=== PATIENT | male | born 1975 | race Caucasian/White ===

== ENCOUNTER 2020-02-16 02:35 | Emergency (ER) | payer MEDICARE ==
[~2020-02-16] VITALS: Ht 190.5 cm; Wt 125.0 kg
[2020-02-16 02:39] VITALS: TEMP 98.3
[2020-02-16 03:09] LABS: HEMATOCRIT 41.4 % (42.0-52.0); HEMOGLOBIN 13.5 g/dl (13.5-18.0); MEAN CELL VOLUME 101 fl (80.0-100.0); MEAN CORPUSCULAR HEMOGLOBIN 33 pg (27.0-31.0); MEAN CORPUSCULAR HGB CONC 33 g/dl (33.0-37.0); MEAN PLATELET VOLUME 10.1 fl (7.4-10.4); PLATELET COUNT 225 K/mm3 (130-400); RED BLOOD COUNT 4.11 M/mm3 (4.20-5.60); REDCELL DISTRIBUTION WIDTH-CV 14.2 % (11.5-14.5)
[2020-02-16 03:18] LABS: ALBUMIN 4.1 gm/dL (3.5-5.0); BILIRUBIN,TOTAL 0.5 mg/dL (0.0-1.0); CALCIUM 9.1 mg/dL (8.4-10.2); CREATININE, serum 2.32 (0.66-1.25); POTASSIUM 4.7 mmol/L (3.4-5.0); TOTAL PROTEIN 7.6 gm/dL (6.4-8.2)
[2020-02-16 04:25] LABS: BAND 4 % (0-10); EOSINOPHIL 1 % (0-4); LYMPHOCYTE 17 % (20.0-51.0); METAMYELOCYTE 1 % (0-0); NEUTROPHILS 62 % (42.0-75.2); PLATELET ESTIMATE NORMAL (NORMAL); TEAR DROP CELLS 1+
[2020-02-16 05:02] VITALS: BP 130/82; PULSE 80
== END 2020-02-16 05:08 | disposition home or self-care (01) ==
LOC: COL.ER 02:35
PROVIDERS: Emergency Medicine
DX: K85.90 Acute pancreatitis without necrosis or infection, unspecified (principal); I13.0 Hypertensive heart and chronic kidney disease with heart failure and stage 1 through stage 4 chronic kidney disease, or unspecified chronic kidney disease; Z85.07 Personal history of malignant neoplasm of pancreas; Z90.411 Acquired partial absence of pancreas; Z90.81 Acquired absence of spleen; Z90.49 Acquired absence of other specified parts of digestive tract; Z94.1 Heart transplant status
CPT/HCPCS: J1170; J2405; J3010; J7030

== ENCOUNTER → 2020-03-05 | Outpatient (CLI) | payer MEDICARE ==
[2020-03-05 13:11] LABS: INR 1.4 (0.8-3.0); PROTHROMBIN TIME 16.1 SECONDS (9.7-12.8)
== END ==
LOC: COL.LAB 11:54
DX: I82.5Y9 Chronic embolism and thrombosis of unspecified deep veins of unspecified proximal lower extremity (principal)

== ENCOUNTER → 2020-03-09 | Outpatient (CLI) | payer MEDICARE ==
[2020-03-09 09:14] LABS: INR 1.8 (0.8-3.0); PROTHROMBIN TIME 20.5 SECONDS (9.7-12.8)
== END ==
LOC: COL.LAB 08:39
DX: I82.5Y9 Chronic embolism and thrombosis of unspecified deep veins of unspecified proximal lower extremity (principal)

== ENCOUNTER → 2020-03-17 | Outpatient (CLI) | payer MEDICARE ==
[2020-03-17 16:37] LABS: PROTHROMBIN TIME 22.5 SECONDS (9.7-12.8)
== END ==
LOC: COL.LAB 16:00
DX: I82.5Y9 Chronic embolism and thrombosis of unspecified deep veins of unspecified proximal lower extremity (principal)

== ENCOUNTER → 2020-04-27 | Outpatient (CLI) | payer MEDICARE ==
[2020-04-27 11:47] LABS: BASO % 0.4 % (0.0-2.0); EOS # 0.1 (0.0-0.7); EOS % 1.8 % (0-4.0); GRAN # 4.8 (1.4-6.5); GRAN % 60.6 % (42.2-75.2); HEMATOCRIT 45.6 % (42.0-52.0); HEMOGLOBIN 15.2 g/dl (13.5-18.0); LYMPH # 1.6 (1.2-3.4); LYMPH % 20.6 % (20.0-51.0); MEAN CELL VOLUME 99 fl (80.0-100.0); MEAN CORPUSCULAR HEMOGLOBIN 33 pg (27.0-31.0); MEAN CORPUSCULAR HGB CONC 33 g/dl (33.0-37.0); MEAN PLATELET VOLUME 10.2 fl (7.4-10.4); MONO # 1.3 (0.1-0.6); MONO % 16.2 % (1.7-9.3); PLATELET COUNT 265 K/mm3 (130-400); RED BLOOD COUNT 4.63 M/mm3 (4.20-5.60); REDCELL DISTRIBUTION WIDTH-CV 13.1 % (11.5-14.5)
== END ==
LOC: COL.LAB 10:27
DX: Z48.21 Encounter for aftercare following heart transplant (principal)

== ENCOUNTER → 2020-04-27 | Outpatient (CLI) | payer MEDICARE ==
[2020-04-27 11:42] LABS: INR 2.2 (0.8-3.0); PROTHROMBIN TIME 24.5 SECONDS (9.7-12.8)
== END ==
LOC: COL.LAB 09:23
DX: I82.5Y9 Chronic embolism and thrombosis of unspecified deep veins of unspecified proximal lower extremity (principal)

== ENCOUNTER → 2020-04-27 | Outpatient (CLI) | payer MEDICARE ==
[2020-04-27 11:51] LABS: ALBUMIN 4.4 gm/dL (3.5-5.0); BILIRUBIN UNCONJUGATED 0.6 mg/dL (0.0-1.1); BILIRUBIN,TOTAL 0.6 mg/dL (0.0-1.0); CREATININE, serum 1.8 (0.66-1.25); POTASSIUM 4.2 mmol/L (3.4-5.0); TOTAL PROTEIN 8.2 gm/dL (6.4-8.2)
[2020-04-27 12:15] LABS: CALCIUM 9.5 mg/dL (8.4-10.2)
== END ==
LOC: COL.LAB 10:20
PROVIDERS: Internal Medicine
DX: Z48.21 Encounter for aftercare following heart transplant (principal); Z94.1 Heart transplant status

== ENCOUNTER → 2020-06-19 | Outpatient (CLI) | payer MEDICARE ==
[2020-06-19 15:49] LABS: INR 3.3 (0.8-3.0); PROTHROMBIN TIME 36.9 SECONDS (9.7-12.8)
== END ==
LOC: COL.LAB 14:50
DX: I82.5Y9 Chronic embolism and thrombosis of unspecified deep veins of unspecified proximal lower extremity (principal)

== ENCOUNTER → 2020-07-28 | Outpatient (CLI) | payer MEDICARE ==
[2020-07-28 11:24] LABS: BASO % 0.4 % (0.0-2.0); EOS # 0.1 (0.0-0.7); EOS % 1.9 % (0-4.0); GRAN # 3.7 (1.4-6.5); GRAN % 53.5 % (42.2-75.2); HEMATOCRIT 44.3 % (42.0-52.0); HEMOGLOBIN 14.7 g/dl (13.5-18.0); LYMPH # 1.9 (1.2-3.4); LYMPH % 27.4 % (20.0-51.0); MEAN CELL VOLUME 98 fl (80.0-100.0); MEAN CORPUSCULAR HEMOGLOBIN 33 pg (27.0-31.0); MEAN CORPUSCULAR HGB CONC 33 g/dl (33.0-37.0); MEAN PLATELET VOLUME 10.1 fl (7.4-10.4); MONO # 1.1 (0.1-0.6); MONO % 16.5 % (1.7-9.3); PLATELET COUNT 228 K/mm3 (130-400); RED BLOOD COUNT 4.53 M/mm3 (4.20-5.60); REDCELL DISTRIBUTION WIDTH-CV 14.1 % (11.5-14.5)
[2020-07-28 11:30] LABS: ALBUMIN 4.6 gm/dL (3.5-5.0); BILIRUBIN,TOTAL 0.6 mg/dL (0.0-1.0); CALCIUM 9.7 mg/dL (8.4-10.2); CREATININE, serum 2.22 (0.66-1.25); POTASSIUM 4.7 mmol/L (3.4-5.0)
== END ==
LOC: COL.LAB 09:55
PROVIDERS: Internal Medicine Cardiovascular Disease
DX: Z48.21 Encounter for aftercare following heart transplant (principal); N18.30 Chronic kidney disease, stage 3 unspecified; Z79.899 Other long term (current) drug therapy; D84.9 Immunodeficiency, unspecified

== ENCOUNTER → 2020-07-28 | Outpatient (CLI) | payer MEDICARE | LOC: COL.LAB 09:27 | DX: Z01.89 Encounter for other specified special examinations (principal) ==

== ENCOUNTER → 2020-07-28 | Outpatient (CLI) | payer MEDICARE ==
[2020-07-28 11:23] LABS: INR 2.9 (0.8-3.0); PROTHROMBIN TIME 32.4 SECONDS (9.7-12.8)
== END ==
LOC: COL.LAB 09:44
PROVIDERS: Internal Medicine Cardiovascular Disease
DX: Z48.21 Encounter for aftercare following heart transplant (principal); N18.30 Chronic kidney disease, stage 3 unspecified; D84.9 Immunodeficiency, unspecified; Z79.899 Other long term (current) drug therapy; I82.5Y9 Chronic embolism and thrombosis of unspecified deep veins of unspecified proximal lower extremity

== ENCOUNTER → 2020-08-24 | Outpatient (CLI) | payer MEDICARE | LOC: COL.LAB 08:43 | DX: Z48.21 Encounter for aftercare following heart transplant (principal) ==

== ENCOUNTER → 2020-08-24 | Outpatient (CLI) | payer MEDICARE ==
[2020-08-24 09:56] LABS: INR 4.5 (0.8-3.0)
== END ==
LOC: COL.LAB 09:08
PROVIDERS: Internal Medicine Cardiovascular Disease
DX: I82.5Y9 Chronic embolism and thrombosis of unspecified deep veins of unspecified proximal lower extremity (principal)

== ENCOUNTER → 2020-08-28 | Outpatient (CLI) | payer MEDICARE ==
[2020-08-28 14:09] LABS: INR 2.3 (0.8-3.0); PROTHROMBIN TIME 25.7 SECONDS (9.7-12.8)
== END ==
LOC: COL.LAB 13:01
DX: Z86.73 Personal history of transient ischemic attack (TIA), and cerebral infarction without residual deficits (principal)

== ENCOUNTER → 2020-10-02 | Outpatient (CLI) | payer MEDICARE ==
[2020-10-02 15:49] LABS: INR 3.5 (0.8-3.0); PROTHROMBIN TIME 39.4 SECONDS (9.7-12.8)
== END ==
LOC: COL.LAB 15:06
PROVIDERS: Internal Medicine Cardiovascular Disease
DX: I82.5Y9 Chronic embolism and thrombosis of unspecified deep veins of unspecified proximal lower extremity (principal)

== ENCOUNTER → 2020-10-12 | Outpatient (CLI) | payer MEDICARE ==
[2020-10-12 15:05] LABS: INR 2.8 (0.8-3.0); PROTHROMBIN TIME 31.1 SECONDS (9.7-12.8)
== END ==
LOC: COL.LAB 14:23
DX: Z86.73 Personal history of transient ischemic attack (TIA), and cerebral infarction without residual deficits (principal)

== ENCOUNTER → 2020-12-15 | Outpatient (CLI) | payer MEDICARE ==
[2020-12-15 12:17] LABS: BILIRUBIN,TOTAL 0.7 mg/dL (0.0-1.0); CALCIUM 9.3 mg/dL (8.4-10.2); CHOLESTEROL RISK RATIO 1.8; CREATININE, serum 1.84 (0.66-1.25); INR 2.3 (0.8-3.0); MAGNESIUM 1.8 mg/dL (1.6-2.3); POTASSIUM 4.6 mmol/L (3.4-5.0); PROTHROMBIN TIME 25.4 SECONDS (9.7-12.8); TOTAL PROTEIN 7.3 gm/dL (6.4-8.2)
[2020-12-15 12:19] LABS: BASO % 0.6 % (0.0-2.0); EOS # 0.2 (0.0-0.7); EOS % 3.1 % (0-4.0); GRAN # 2.5 (1.4-6.5); HEMATOCRIT 43.3 % (42.0-52.0); HEMOGLOBIN 14.2 g/dl (13.5-18.0); LYMPH # 1.7 (1.2-3.4); LYMPH % 32.6 % (20.0-51.0); MEAN CELL VOLUME 99 fl (80.0-100.0); MEAN CORPUSCULAR HEMOGLOBIN 33 pg (27.0-31.0); MEAN CORPUSCULAR HGB CONC 33 g/dl (33.0-37.0); MEAN PLATELET VOLUME 10.3 fl (7.4-10.4); MONO # 0.9 (0.1-0.6); MONO % 16.3 % (1.7-9.3); PLATELET COUNT 238 K/mm3 (130-400); RED BLOOD COUNT 4.36 M/mm3 (4.20-5.60); REDCELL DISTRIBUTION WIDTH-CV 13.3 % (11.5-14.5)
[2020-12-16 15:11] LABS: CYCLOSPORINE-BLOOD 42 ng/mL (100-400)
[2020-12-18 12:38] LABS: CYTOMEGALOVIRUS DNA PCR Not Detected (()); CYTOMEGALOVIRUS DNA PCR LOG Not Detected (())
== END ==
LOC: COL.LAB 11:07
PROVIDERS: Internal Medicine Cardiovascular Disease
DX: Z48.21 Encounter for aftercare following heart transplant (principal); E78.2 Mixed hyperlipidemia; Z79.01 Long term (current) use of anticoagulants

== ENCOUNTER → 2021-02-23 | Outpatient (CLI) | payer MEDICARE ==
[2021-02-23 11:37] LABS: BASO % 0.5 % (0.0-2.0); EOS # 0.1 (0.0-0.7); EOS % 2.3 % (0-4.0); GRAN # 3.2 (1.4-6.5); GRAN % 52.3 % (42.2-75.2); HEMATOCRIT 42.9 % (42.0-52.0); HEMOGLOBIN 13.6 g/dl (13.5-18.0); LYMPH # 1.8 (1.2-3.4); LYMPH % 28.9 % (20.0-51.0); MEAN CELL VOLUME 101 fl (80.0-100.0); MEAN CORPUSCULAR HEMOGLOBIN 32 pg (27.0-31.0); MEAN CORPUSCULAR HGB CONC 32 g/dl (33.0-37.0); MEAN PLATELET VOLUME 10.3 fl (7.4-10.4); MONO % 15.8 % (1.7-9.3); PLATELET COUNT 231 K/mm3 (130-400); RED BLOOD COUNT 4.23 M/mm3 (4.20-5.60); REDCELL DISTRIBUTION WIDTH-CV 14.1 % (11.5-14.5)
[2021-02-23 11:48] LABS: BILIRUBIN,TOTAL 0.6 mg/dL (0.0-1.0); CREATININE, serum 1.86 (0.66-1.25); MAGNESIUM 1.9 mg/dL (1.6-2.3); POTASSIUM 4.5 mmol/L (3.4-5.0); TOTAL PROTEIN 7.2 gm/dL (6.4-8.2)
[2021-02-23 11:50] LABS: INR 2.5 (0.8-3.0); PROTHROMBIN TIME 28.1 SECONDS (9.7-12.8)
== END ==
LOC: COL.LAB 02-22 13:46
DX: Z48.21 Encounter for aftercare following heart transplant (principal)

== ENCOUNTER → 2021-04-21 | Outpatient (CLI) | payer MEDICARE | LOC: COL.LAB 10:42 | DX: Z48.21 Encounter for aftercare following heart transplant (principal); Z79.899 Other long term (current) drug therapy ==

== ENCOUNTER 2021-08-04 12:28 | Emergency (ER) | payer MEDICARE ==
[~2021-08-04] VITALS: Ht 190.5 cm; Wt 125.0 kg
[2021-08-04 13:24] VITALS: TEMP 98.7
[2021-08-04 16:02] LABS: HEMATOCRIT 42.2 % (42.0-52.0); HEMOGLOBIN 14.1 g/dl (13.5-18.0); MEAN CELL VOLUME 99 fl (80.0-100.0); MEAN CORPUSCULAR HEMOGLOBIN 33 pg (27-31); MEAN CORPUSCULAR HGB CONC 33 g/dl (33.0-37.0); MEAN PLATELET VOLUME 9.6 fl (7.4-10.4); PLATELET COUNT 230 K/mm3 (130-400); RED BLOOD COUNT 4.27 M/mm3 (4.20-5.60); REDCELL DISTRIBUTION WIDTH-CV 14.1 % (11.5-14.5)
[2021-08-04 16:15] LABS: ALBUMIN 3.2 gm/dL (3.5-5.0); BILIRUBIN,TOTAL 0.4 mg/dL (0.2-1.2); CALCIUM 8.7 mg/dL (8.4-10.2); CREATININE, serum 1.83 mg/dL (0.72-1.25); POTASSIUM 5.3 mmol/L (3.5-4.5); TOTAL PROTEIN 7.2 gm/dL (6.2-8.1)
[2021-08-04 16:49] LABS: BAND 5 % (0-10); LYMPHOCYTE 18 % (20.0-51.0); NEUTROPHILS 57 % (42.0-75.2); PLATELET ESTIMATE NORMAL (NORMAL)
[2021-08-04] MEDS ORDERED: NORCO 325 MG-51 TAB PO (19:14)
[2021-08-04 19:55] VITALS: BP 136/101; PULSE 109
== END 2021-08-04 19:55 | disposition home or self-care (01) ==
LOC: COL.ER 12:28
PROVIDERS: Personal Emergency Response Attendant
DX: J40 Bronchitis, not specified as acute or chronic (principal); K43.9 Ventral hernia without obstruction or gangrene; I12.9 Hypertensive chronic kidney disease with stage 1 through stage 4 chronic kidney disease, or unspecified chronic kidney disease; N18.9 Chronic kidney disease, unspecified; Z90.49 Acquired absence of other specified parts of digestive tract; Z85.07 Personal history of malignant neoplasm of pancreas; Z94.1 Heart transplant status
CPT/HCPCS: J0456; J0696; J2270; J2405; J7030; J7050

== ENCOUNTER → 2021-11-03 | Outpatient (CLI) | payer MEDICARE ==
[~2021-11-03] MED LIST: NORCO 325 MG-51 TAB PO
[2021-11-03 10:49] LABS: CALCIUM 9.2 mg/dL (8.4-10.2); CREATININE, serum 2.03 mg/dL (0.72-1.25); POTASSIUM 4.7 mmol/L (3.5-4.5)
== END ==
LOC: COL.LAB 10:13
DX: Z48.21 Encounter for aftercare following heart transplant (principal)

== ENCOUNTER → 2022-01-20 | Outpatient (CLI) | payer MEDICARE ==
[2022-01-20 10:45] LABS: BASO % 0.5 % (0.0-2.0); EOS # 0.1 K/mm3 (0.0-0.7); EOS % 2.1 % (0.0-4.0); GRAN # 3.2 K/mm3 (1.4-6.5); GRAN % 55.1 % (42.2-75.2); HEMATOCRIT 44.1 % (42.0-52.0); HEMOGLOBIN 14.2 g/dl (13.5-18.0); LYMPH # 1.7 K/mm3 (1.2-3.4); LYMPH % 29.6 % (20.0-51.0); MEAN CELL VOLUME 100 fl (80.0-100.0); MEAN CORPUSCULAR HEMOGLOBIN 32 pg (27-31); MEAN CORPUSCULAR HGB CONC 32 g/dl (33.0-37.0); MEAN PLATELET VOLUME 10.1 fl (7.4-10.4); MONO # 0.7 K/mm3 (0.1-0.6); MONO % 12.5 % (1.7-9.3); PLATELET COUNT 231 K/mm3 (130-400); REDCELL DISTRIBUTION WIDTH-CV 13.6 % (11.5-14.5)
[2022-01-20 11:03] LABS: ALBUMIN 3.6 gm/dL (3.5-5.0); BILIRUBIN,TOTAL 0.7 mg/dL (0.2-1.2); CALCIUM 9.3 mg/dL (8.4-10.2); CREATININE, serum 1.93 mg/dL (0.72-1.25); POTASSIUM 4.6 mmol/L (3.5-4.5); TOTAL PROTEIN 7.5 gm/dL (6.2-8.1)
== END ==
LOC: COL.LAB 10:05
DX: D84.9 Immunodeficiency, unspecified (principal); Z48.21 Encounter for aftercare following heart transplant; Z79.899 Other long term (current) drug therapy

== ENCOUNTER → 2022-03-08 | Outpatient (CLI) | payer MEDICARE ==
[2022-03-08 10:46] LABS: CREATININE, serum 1.93 mg/dL (0.72-1.25)
== END ==
LOC: COL.LAB 09:33
DX: Z48.21 Encounter for aftercare following heart transplant (principal)

== ENCOUNTER → 2022-10-28 | Outpatient (CLI) | payer MEDICARE ==
[2022-10-28 09:40] LABS: BASO % 0.4 % (0.0-2.0); EOS # 0.2 K/mm3 (0.0-0.7); EOS % 2.2 % (0.0-4.0); GRAN # 4.2 K/mm3 (1.4-6.5); GRAN % 58.4 % (42.2-75.2); HEMATOCRIT 45.6 % (42.0-52.0); HEMOGLOBIN 15.1 g/dl (13.5-18.0); LYMPH # 1.8 K/mm3 (1.2-3.4); LYMPH % 25.4 % (20.0-51.0); MEAN CELL VOLUME 98 fl (80.0-100.0); MEAN CORPUSCULAR HEMOGLOBIN 33 pg (27-31); MEAN CORPUSCULAR HGB CONC 33 g/dl (33.0-37.0); MEAN PLATELET VOLUME 9.7 fl (7.4-10.4); MONO % 13.3 % (1.7-9.3); PLATELET COUNT 259 K/mm3 (130-400); RED BLOOD COUNT 4.65 M/mm3 (4.20-5.60); REDCELL DISTRIBUTION WIDTH-CV 13.3 % (11.5-14.5)
== END ==
LOC: COL.LAB 08:59
DX: Z48.21 Encounter for aftercare following heart transplant (principal)

== ENCOUNTER → 2023-01-05 | Outpatient (CLI) | payer MEDICARE ==
[~2023-01-05] MED LIST changes: +BENTYL 10MG10 MG/CAP PO; +CELLCEPT 5500 MG/TAB PO; +CRESTOR20 MG PO; +ELIQUIS 5MG PO; +OSCAL 500 TAB500 MG PO; +PEPCID 20MG TAB20 MG PO; +PREDNISONE 5MG5 MG PO; +PRINIVIL5 MG PO; +PROGRAF 0.5MG0.5 MG PO; +PROGRAF 1MG1 MG PO; +PROZAC40 MG PO; +VITAMIN C500 MG PO; +VITAMIN D3400 I1 PO; +VITAMIN E 400 U4001 PO; +ZOFRAN ODT4 MG PO
[2023-01-05 10:51] LABS: BASO % 0.6 % (0.0-2.0); EOS # 0.1 K/mm3 (0.0-0.7); EOS % 1.8 % (0.0-4.0); GRAN # 4.2 K/mm3 (1.4-6.5); GRAN % 63.3 % (42.2-75.2); HEMATOCRIT 45.3 % (42.0-52.0); LYMPH # 1.5 K/mm3 (1.2-3.4); LYMPH % 22.4 % (20.0-51.0); MEAN CELL VOLUME 96 fl (80.0-100.0); MEAN CORPUSCULAR HEMOGLOBIN 32 pg (27-31); MEAN CORPUSCULAR HGB CONC 33 g/dl (33.0-37.0); MEAN PLATELET VOLUME 9.5 fl (7.4-10.4); MONO # 0.8 K/mm3 (0.1-0.6); MONO % 11.7 % (1.7-9.3); PLATELET COUNT 265 K/mm3 (130-400); REDCELL DISTRIBUTION WIDTH-CV 13.5 % (11.5-14.5)
[2023-01-05 11:10] LABS: ALBUMIN 3.7 gm/dL (3.5-5.0); BILIRUBIN,TOTAL 0.7 mg/dL (0.2-1.2); CALCIUM 9.5 mg/dL (8.4-10.2); CREATININE, serum 2.01 mg/dL (0.72-1.25); MAGNESIUM 1.9 mg/dL (1.6-2.6); POTASSIUM 4.6 mmol/L (3.5-4.5); TOTAL PROTEIN 7.4 gm/dL (6.2-8.1)
== END ==
LOC: COL.LAB 10:17
PROVIDERS: Internal Medicine Cardiovascular Disease
DX: Z48.21 Encounter for aftercare following heart transplant (principal); D84.9 Immunodeficiency, unspecified; Z79.899 Other long term (current) drug therapy